=== PATIENT | female | born 1955 | race American Indian/Alaskan Native ===

== ENCOUNTER 2016-10-01 07:26 | Day surgery (SDC) | payer OTHER ==
[2016-10-01 07:59] VITALS: BMI 29.6
[2016-10-01 08:15] VITALS: TEMP 97.2; O2SAT 100
[2016-10-01] MEDS ORDERED: Propofol 10 mg/ml Inj (20 ML) ONE (09:00)
--- NOTE | 2016-10-01 09:06 | CP.SDSHP ---
Same Day Surgery H & P - History Proposed Procedure: EGD Pre-Op Diagnosis: SEE NOTES - Previous Medical/Surgical History Pulmonary: Asthma Misc: Other - Allergies Allergies: Allergies No Known Allergies Allergy (Verified 10/01/16 07:59) - Physical Exam General Appearance: N Vital Signs: Vital Signs 10/01/16 08:03 Temperature 97.2 F L Pulse Rate 70 Respiratory 19 Rate Blood Pressure 151/73 H O2 Sat by Pulse 100 Oximetry Mental Status: Alert & Oriented x3 Neuro: Other Heart: WNL Lungs: Other GI: WNL - {Optional Preform as Required} Breast: WNL Abdomen: Other Rectal: Other Integument: WNL : WNL Ortho: WNL ENT: WNL - Impression Pt. Evaluated Today:Candidate for Anesthesia & Procedure: Yes - Date & Time Time: 09:06 Short Stay Discharge - Short Stay Discharge Admitting Diagnosis/Reason for Visit: FUNCTIONAL DYSPEPSIA Disposition: HOME/ ROUTINE
[2016-10-01] MEDS ORDERED: Pantoprazole 40 mg EC Tab PO ONE (09:15)
[2016-10-01] MEDS ORDERED: Belladonna-Phenobarbital PO ONE (09:15)
[2016-10-01] MEDS ORDERED: Lidocaine Hydrochloride 10 ML INJ ONE (09:25)
[2016-10-01 10:31] VITALS: BP 128/59; PULSE 54; RESP 15
== END 2016-10-01 10:20 | disposition home or self-care (01) ==
LOC: C.ENDO 07:26
PROVIDERS: ATTEND Specialist
DX: K29.70 Gastritis, unspecified, without bleeding (principal); K20.9 Esophagitis, unspecified; K44.9 Diaphragmatic hernia without obstruction or gangrene
CPT/HCPCS: 43239; 88305; 88342; J2704; J3010

== ENCOUNTER 2016-10-08 06:38 | Day surgery (SDC) | payer OTHER ==
[2016-10-08] MEDS ORDERED: Propofol 10 mg/ml Inj (20 ML) ONE (08:20)
--- NOTE | 2016-10-08 08:20 | CP.SDSHP ---
Same Day Surgery H & P - History Proposed Procedure: COLONSCOPY Pre-Op Diagnosis: SEE NOTES - Allergies Allergies: Allergies No Known Allergies Allergy (Verified 10/08/16 07:10) - Physical Exam Vital Signs: Vital Signs 10/08/16 06:50 Temperature 97.7 F Pulse Rate 73 Respiratory 19 Rate Blood Pressure 137/65 O2 Sat by Pulse 97 Oximetry Mental Status: Alert & Oriented x3 Neuro: WNL Heart: WNL Lungs: Other GI: WNL - {Optional Preform as Required} Breast: WNL Abdomen: Other Rectal: Other Integument: WNL : WNL Ortho: WNL ENT: WNL - Impression Pt. Evaluated Today:Candidate for Anesthesia & Procedure: Yes - Date & Time Time: 08:20 Short Stay Discharge - Short Stay Discharge Admitting Diagnosis/Reason for Visit: RECTAL BLEEDING Disposition: HOME/ ROUTINE
[2016-10-08] MEDS ORDERED: Glucagon Recombinant 1 mg Inj ONE (08:29)
[2016-10-08] MEDS ORDERED: Belladonna-Phenobarbital PO ONE (08:30)
[2016-10-08 08:54] VITALS: TEMP 97.3
[2016-10-08 10:27] VITALS: RESP 16; O2SAT 99
[2016-10-08 10:31] VITALS: BP 116/61; PULSE 61
== END 2016-10-08 09:40 | disposition home or self-care (01) ==
LOC: C.ENDO 06:38
PROVIDERS: ATTEND Specialist
DX: K62.5 Hemorrhage of anus and rectum (principal); D12.3 Benign neoplasm of transverse colon; K64.8 Other hemorrhoids; K57.30 Diverticulosis of large intestine without perforation or abscess without bleeding
CPT/HCPCS: 45380; 88305; J1610; J2704